=== PATIENT | male | born 1970 | race Caucasian/White ===

== ENCOUNTER 2020-09-06 12:17 | Emergency (ER) | payer BC ==
--- OUTSIDE RECORDS SUMMARY | 2020-09-06 12:21 | XMS REPORT | Continuity of Care Document ---
:1970 Author Organization [facility] t Address [address] [place] [address] Dr. Rivera [address] [place] [id number] Care Team Providers Name Role Phone Unavailable Unavailable Unavailable Payers Payer Name Policy Type Policy Number Effective Date Expiration Date S ource Problems This patient has no known problems. Allergies, Adverse Reactions, Alerts This patient has no known allergies or adverse reactions. Medications This patient has no known medications. Procedures This patient has no known procedures. Results This patient has no known results.
--- NOTE | 2020-09-06 13:26 | RAD REPORT ---
EXAM DESCRIPTION: CT - Ct Stroke Brain Wo Cont - 09/06/2020 1:20 pm CLINICAL HISTORY: Dizziness;Visual disturbances Headache, drowsiness, CVA symptomology COMPARISON: No comparisons TECHNIQUE: All CT scans are performed using dose optimization technique as appropriate and may inclu de automated exposure control or mA/KV adjustment according to patient size. FINDINGS: No intracranial hemorrhage, hydrocephalus or extra-axial fluid collection.No areas of brai n edema or evidence of midline shift. The paranasal sinuses and mastoids are clear. The calvarium is intact. IMPRESSION: No acute intracranial abnormality. The findings were discussed with ALMITA Henson on 09/06/2020 at 1:20 p.m. by telephone.
[2020-09-06 13:47] LABS: Protime INR 1.09
[2020-09-06 14:05] LABS: Absolute Lymphocytes (CBC) 1.7 K/uL (0.7-4.9); Basophils % 1.1 % (0-1.3); Hematocrit 44.5 % (39.6-49.0); Lymphocytes % 18.6 % (15.3-44.8); MPV 7.9 fL (7.6-11.3)
[2020-09-06 14:07] LABS: ALT/SGPT 27 U/L (12-78); AST/SGOT 11 U/L (15-37); Albumin 3.7 g/dL (3.4-5.0); Alkaline Phosphatase 100 U/L (45-117); BUN Blood Urea Nitrogen 12 mg/dL (7-18); Bicarbonate 29 mmol/L (21-32); Bilirubin Direct 0.1 mg/dL (0-0.2); Bilirubin Total 0.5 mg/dL (0.2-1.0); Glucose Level 111 mg/dL (74-106); Magnesium 2.3 mg/dL (1.8-2.4); NT PRO-BNP 317 pg/mL (<125); Potassium 4.1 mmol/L (3.5-5.1); Protein, Total 8.6 g/dL (6.4-8.2); Sodium Level 142 mmol/L (136-145); Troponin (Emerg Dept Use Only) < 0.02 ng/mL (0.0-0.045)
--- NOTE | 2020-09-06 14:26 | RAD REPORT ---
EXAM DESCRIPTION: RAD - Chest Single View - 09/06/2020 1:53 pm CLINICAL HISTORY: DYSPNEA Chest pain. COMPARISON: No comparisons FINDINGS: Portable technique limits examination quality. The lungs are grossly clear. The heart is normal in size. No displaced fractures. IMPRESSION: No acute intrathoracic process suspected.
--- NOTE | 2020-09-06 14:31 | EDPHYS ---
Physician Documentation [facility] Name: Guy Santiago Age: 49 yrs Sex: Male : 1970 Arrival Date: 09/06/2020 Time: 12:21 Bed 13 Private MD: ED Physician Garrett Vaz HPI: 09/06 14:21 This 49 yrs old Male presents to ER via Ambulatory with complaints of jr8 Dizziness, Blurred Vision. 14:21 The patient presents with dizziness, lightheadedness. Onset: The symptoms/episode jr8 began/occurred suddenly, today. Context: occurred at a restaurant. Associated signs and symptoms: Pertinent positives: blurred vision. Patient reports sitting at restaurant with a friend when he suddenly became dizzy and lightheaded with visual changes mostly on left side. He denies LOC, AMS, weakness, numbness or tingling. . Historical: - Allergies: 12:30 PENICILLINS; ll1 12:30 shell fish; ll1 - PMHx: 12:30 heart condition-arrhythmia; ll1 - PSHx: 12:30 pyloric stenosis; ll1 - Immunization history:: Flu vaccine is up to date. - Social history:: Smoking status: Patient denies any tobacco usage or history of. ROS: 14:23 Cardiovascular: Negative for chest pain, palpitations, and edema, Respiratory: Negative jr8 for shortness of breath, cough, wheezing, and pleuritic chest pain, Abdomen/GI: Negative for abdominal pain, nausea, vomiting, diarrhea, and constipation, MS/Extremity: Negative for injury and deformity, Skin: Negative for injury, rash, and discoloration, Neuro: Negative for headache, weakness, numbness, tingling, and seizure, Psych: Negative for depression, anxiety, suicide ideation, homicidal ideation, and hallucinations. 14:23 Eyes: Positive for blurry vision, visual disturbance, of the outer aspect of conjuctiva of left eye, iris of left eye and inner aspect of conjunctiva of left eye. Exam: 14:24 Eyes: Pupils equal round and reactive to light, extra-ocular motions intact. Lids and jr8 lashes normal. Conjunctiva and sclera are non-icteric and not injected. Cornea within normal limits. Periorbital areas with no swelling, redness, or edema. Cardiovascular: Regular rate and rhythm with a normal S1 and S2. No gallops, murmurs, or rubs. Normal PMI, no JVD. No pulse deficits. Respiratory: Lungs have equal breath sounds bilaterally, clear to auscultation and percussion. No rales, rhonchi or wheezes noted. No increased work of breathing, no retractions or nasal flaring. Abdomen/GI: Soft, non-tender, with normal bowel sounds. No distension or tympany. No guarding or rebound. No evidence of tenderness throughout. Skin: Warm, dry with normal turgor. Normal color with no rashes, no lesions, and no evidence of cellulitis. MS/ Extremity: Pulses equal, no cyanosis. Neurovascular intact. Full, normal range of motion. Neuro: Awake and alert, GCS 15, oriented to person, place, time, and situation. Cranial nerves II-XII grossly intact. Motor strength 5/5 in all extremities. Sensory grossly intact. Cerebellar exam normal. Normal gait. 14:24 Neuro: Orientation: is normal, Mentation: is normal, Memory: is normal, Cranial nerves: grossly normal, Cerebellar function: is grossly normal, Romberg testing is negative, able to perform alternating rapid hand movements, Motor: is normal, moves all fours, strength is normal, Sensation: is normal, no obvious gross deficits, Gait: is steady. 14:27 Back: No spinal tenderness. No costovertebral tenderness. Full range of motion. jr8 Vital Signs: 12:28 BP 151 / 88; Pulse 72; Resp 17; Temp 98.1; Pulse Ox 100% ; Weight 149.69 kg; Height 6 ll1 ft. 4 in. (193.04 cm); Pain 0/10; 13:47 BP 157 / 84; Pulse 72; Resp 17; Pulse Ox 100% ; Pain 0/10; jl7 14:00 BP 138 / 82; Pulse 65; Resp 17; Pulse Ox 99% ; jl7 14:50 BP 122 / 80; Pulse 66; Resp 17; Pulse Ox 98% ; jl7 12:28 Body Mass Index 40.17 (149.69 kg, 193.04 cm) ll1 NIH Stroke Scale Scores: 13:10 NIHSS Score: 0 jl7 14:24 NIHSS Score: 0 jr8 MDM: 12:46 Patient medically screened. 8 14:26 Differential diagnosis: near-syncope, TIA. Data reviewed: vital signs, nurses notes, jr8 lab test result(s), CBC, electrolytes, EKG, radiologic studies, CT scan. Data interpreted: ed case manager: rate is 72 beats/min, rhythm is normal sinus rhythm, Pulse oximetry: on room air is 100 %. Interpretation: normal. Special discussion: Based on the history and exam findings, there is no indication for further emergent testing or inpatient evaluation. I discussed with the patient/guardian the need to see the neurologist for further evaluation of the symptoms. ED course: Spoke to Dr. Sosa who agrees with initial assessment and treatment plan. Can be worked up out patient srivastava understanding if he were to worsen or have changes to come back immediately.. 14:27 Data reviewed: vital signs, nurses notes, lab test result(s), EKG, radiologic studies, jr8 CT scan, plain films. Data interpreted: Pulse oximetry: on room air is 100 %. Interpretation: normal. Counseling: I had a detailed discussion with the patient and/or guardian regarding: the historical points, exam findings, and any diagnostic results supporting the discharge/admit diagnosis, lab results, radiology results, the need for outpatient follow up, a neurologist, to return to the emergency department if symptoms worsen or persist or if there are any questions or concerns that arise at home. Response to treatment: the patient's symptoms have resolved after treatment. 09/06 13:13 Order name: Basic Metabolic Panel; Complete Time: 14: 09/06 13:13 Order name: CBC with Diff; Complete Time: 14: 09/06 13:13 Order name: LFT's; Complete Time: 14:09/06 13:13 Order name: Magnesium; Complete Time: 14:09/06 13:13 Order name: NT PRO-BNP; Complete Time: 14: 09/06 13:13 Order name: PT-INR; Complete Time: 09/06 13:13 Order name: Troponin (emerg Dept Use Only); Complete Time: 14:09/06 13:13 Order name: XRAY Chest (1 view); Complete Time: 14:31 09/06 13:15 Order name: CT Stroke Brain w/o Contrast; Complete Time: :09/06 13:50 Order name: Glucose, Ancillary Testing; Complete Time: 13:58 EDMS 09/06 13:13 Order name: EKG; Complete Time: 13:13 8 09/06 13:13 Order name: Cardiac monitoring; Complete Time: 13:52 8 09/06 13:13 Order name: EKG - Nurse/Tech; Complete Time: 13:52 8 09/06 13:13 Order name: IV Saline Lock; Complete Time: 13:52 8 09/06 13:13 Order name: Labs collected and sent; Complete Time: :52 8 09/06 13:13 Order name: O2 Per Protocol; Complete Time: :52 8 09/06 13:13 Order name: O2 Sat Monitoring; Complete Time: :52 [facility] Administered Medications: 14:35 Drug: Aspirin 162 mg Route: PO; jl7 14:49 Follow up: Response: Medication administered at discharge. jl7 14:35 Drug: foLIC Acid 1 mg Route: IVPB; Site: right antecubital; jl7 14:49 Follow up: Response: Medication administered at discharge.; IV Status: Completed jl7 infusion 14:36 Drug: Atorvastatin 40 mg Route: PO; jl7 14:49 Follow up: Response: Medication administered at discharge. jl7 Point of Care Testing: Blood Glucose: 13:38 Blood Glucose: 114 mg/dL; jl7 Ranges: Critical Glucose Levels:Adult <50 mg/dl or >400 mg/dl <40 mg/dl or >180 mg/dl Disposition: 22:17 Co-signature as Attending Physician, Garrett Vaz MD I agree with the assessment and kdr plan of care. Disposition: 09/06/20 14:30 Discharged to Home. Impression: Amaurosis fugax. - Condition is Stable. - Discharge Instructions: Transient Ischemic Attack, Amaurosis Fugax. - Prescriptions for atorvastatin 40 mg Oral tablet - take 1 tablet by ORAL route once daily; 30 tablet. Folic Acid 1 mg Oral Tablet - take 1 tablet by ORAL route once daily; 30 tablet. - Medication Reconciliation Form, Thank You Letter, Antibiotic Education, Prescription Opioid Use form. - Follow up: Vic Sosa MD; When: 2 - 3 days; Reason: Recheck today's complaints, Continuance of care, Re-evaluation by your physician. - Problem is new. - Symptoms are resolved. - Notes: Daily 81 mg aspirin NIH Stroke Scale - NIH Stroke Score Date: 09/06/2020 Time: 13:10 Total Score = 0 1a. Level of Consciousness (LOC) - 0(Alert) 1b. Level of Consciousness (LOC) (Year \T\ Age) - 0(Both) 1c. LOC Commands (Open \T\ Closes Eyes/Awning Maker) - 0(Both) 2. Best Gaze (Lateral Gaze Paresis) - 0(Normal) 3. Visual Field Loss - 0(No visual loss) 4. Facial Palsy - 0(Normal) 5a. Left Arm: Motor (10-second hold) - 0(No drift) 5b. Right Arm: Motor (10-second hold) - 0(No drift) 6a. Left Leg: Motor (5-second hold - always test supine) - 0(No drift) 6b. Right Leg: Motor (5-second hold - always test supine) - 0(No drift) 7. Limb Ataxia (finger/nose \T\ heel/sánchez - test with eyes open) - 0(Absent) 8. Sensory Loss (pinprick arms/legs/face) - 0(Normal) 9. Best Language: Aphasia (description/naming/reading) - 0(No aphasia) 10. Dysarthria (speech clarity - read or repeat words) - 0(Normal) 11. Extinction and Inattention (visual/tactile/auditory/spatial/personal) - 0(No abnormality) Initials: jl7 NIH Stroke Scale - NIH Stroke Score Date: 09/06/2020 Time: 14:24 Total Score = 0 1a. Level of Consciousness (LOC) - 0(Alert) 1b. Level of Consciousness (LOC) (Year \T\ Age) - 0(Both) 1c. LOC Commands (Open \T\ Closes Eyes/Awning Maker) - 0(Both) 2. Best Gaze (Lateral Gaze Paresis) - 0(Normal) 3. Visual Field Loss - 0(No visual loss) 4. Facial Palsy - 0(Normal) 5a. Left Arm: Motor (10-second hold) - 0(No drift) 5b. Right Arm: Motor (10-second hold) - 0(No drift) 6a. Left Leg: Motor (5-second hold - always test supine) - 0(No drift) 6b. Right Leg: Motor (5-second hold - always test supine) - 0(No drift) 7. Limb Ataxia (finger/nose \T\ heel/sánchez - test with eyes open) - 0(Absent) 8. Sensory Loss (pinprick arms/legs/face) - 0(Normal) 9. Best Language: Aphasia (description/naming/reading) - 0(No aphasia) 10. Dysarthria (speech clarity - read or repeat words) - 0(Normal) 11. Extinction and Inattention (visual/tactile/auditory/spatial/personal) - 0(No abnormality) Initials: jr8 Signatures: Dispatcher [employer] EDMS Garrett Vaz MD MD [facility] Rivera Egan PA PA jr8 Mayela Cohen, RN RN hb Cata Caban RN RN jl7 Lena Zamora RN RN ll1 Corrections: (The following items were deleted from the chart) 13:17 13:14 Head Brain Wo Cont+CT.RAD.BRZ ordered. EDIA EDIA 14:29 14:26 ED course: He is to f/u with neurology. Any changes or worsening of jr8 condition he is to return to ED. . jr8 14:53 14:30 09/06/2020 14:30 Discharged to Home. Impression: Amaurosis fugax. hb Condition is Stable. Forms are Medication Reconciliation Form, Thank You Letter, Antibiotic Education, Prescription Opioid Use. Follow up: Vic Sosa; When: 2 - 3 days; Reason: Recheck today's complaints, Continuance of care, Re-evaluation by your physician. Problem is new. Symptoms are resolved. jr8
--- NOTE | 2020-09-06 14:31 | ER ---
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 Near syncope feeling. Dizziness has gotten better. L eye still blurry. Coronavirus screen: Client denies travel out of the [place] in the last 14 days. At this time, the client does not indicate any symptoms associated with coronavirus-19. Ebola Screen: Patient denies travel to an Ebola-affected area in the 21 days before illness onset. Initial Sepsis Screen: Does the patient meet any 2 criteria? No. Patient's initial sepsis screen is negative. Does the patient have a suspected source of infection? No. Patient's initial sepsis screen is negative. Risk Assessment: Do you want to hurt yourself or someone else? Patient reports no desire to harm self or others. Onset of symptoms was September 06, 2020. 12:28 Method Of Arrival: Ambulatory ll1 12:28 Acuity: JACINTA 3 ll1 13:10 An acute neurological deficit is present. The charge nurse has been notified. The jl7 patient has been moved to a treatment area. Pre-hospital glucose is not applicable to this patient. 13:10 Care prior to arrival: None. jl7 13:15 Acuity: JACINTA 2 hb Triage Assessment: 13:15 The onset of the patients symptoms was September 06, 2020 at 11:30. General: Appears in no jl7 apparent distress. uncomfortable. Stroke Activation: Symptom onset < 3 hours Physician: Stroke Attending; Name: ; Notified At: ; Arrived At: Physician: Chief Stroke Resident; Name: ; Notified At: ; Arrived At: Physician: Stroke Resident; Name: ; Notified At: ; Arrived At: Physician: ED Attending; Name: Milind; Notified At: 13:15; Arrived At: 13:15 Physician: ED Resident; Name: ; Notified At: ; Arrived At: Historical: - Allergies: 12:30 PENICILLINS; ll1 12:30 shell fish; ll1 - PMHx: 12:30 heart condition-arrhythmia; ll1 - PSHx: 12:30 pyloric stenosis; ll1 - Immunization history:: Flu vaccine is up to date. - Social history:: Smoking status: Patient denies any tobacco usage or history of. Screenin:10 Abuse screen: Denies threats or abuse. Denies injuries from another. Nutritional jl7 screening: No deficits noted. Tuberculosis screening: No symptoms or risk factors identified. Fall Risk IV access (20 points). Total Akhtar Fall Scale indicates No Risk (0-24 pts). Assessment: 13:10 General: Appears in no apparent distress. uncomfortable, Behavior is calm, cooperative, jl7 appropriate for age. Pain: Denies pain. Neuro: Level of Consciousness is awake, alert, obeys commands, Oriented to person, place, time, situation, Binding Folder Machine are equal bilaterally Moves all extremities. Full function Gait is steady, Speech is normal, Facial symmetry appears normal, Pupils are PERRLA, Intact. Cardiovascular: Denies chest pain, Patient's skin is warm and dry. Chest pain is denied. Respiratory: Airway is patent Respiratory effort is even, unlabored, Respiratory pattern is regular, symmetrical, Denies shortness of breath. Derm: Skin is pink, warm \T\ dry. 13:14 Reassessment: Code Stroke called. Pt to CT via stretcher with Cata WESLEY. hb 13:30 VAN Scoring: Arm Drift: Patients demonstrates NO arm weakness. Patient is VAN Negative. jl7 The patient has not been NPO before screening. The patient is currently on the following diet: Home The patient is alert, and able to follow commands. The patient does not exhibit slurred or garbled speech. The patient is not exhibiting difficulty speaking. The patient does not exhibit difficulty understanding words. The patient is able to swallow own secretions with no drooling or need for suction. Patient tolerated one teaspoon of water. No drooling, immediate coughing, gurgling, or clearing of the throat was noted. The patient tolerated 90mL of water. No drooling, immediate coughing, gurgling, or clearing of the throat was noted. The patient passed the bedside swallow screening. Oral medications may be given as ordered. Contact Physician for further diet orders. Provider notified of bedside swallow screening results: Rivera RECIO. T-PA (Activase) Screening: Contraindications: Rapidly improving condition or minor deficit: Yes. 14:30 Reassessment: Patient appears in no apparent distress at this time. Patient and/or jl7 family updated on plan of care and expected duration. Pain level reassessed. Patient is alert, oriented x 3, equal unlabored respirations, skin warm/dry/pink. Patient states feeling better. Patient states symptoms have improved. Vital Signs: 12:28 BP 151 / 88; Pulse 72; Resp 17; Temp 98.1; Pulse Ox 100% ; Weight 149.69 kg; Height 6 ll1 ft. 4 in. (193.04 cm); Pain 0/10; 13:47 BP 157 / 84; Pulse 72; Resp 17; Pulse Ox 100% ; Pain 0/10; jl7 14:00 BP 138 / 82; Pulse 65; Resp 17; Pulse Ox 99% ; jl7 14:50 BP 122 / 80; Pulse 66; Resp 17; Pulse Ox 98% ; jl7 12:28 Body Mass Index 40.17 (149.69 kg, 193.04 cm) ll1 NIH Stroke Scale Scores: 13:10 NIHSS Score: 0 jl7 14:24 NIHSS Score: 0 8 ED Course: 12:21 Patient arrived in ED. mr 12:29 Triage completed. ll1 12:29 Arm band placed on Patient placed in an exam room, on a stretcher. ll1 12:32 Rivera Egan PA is PHCP. jr8 12:32 Garrett Vaz MD is Attending Physician. jr8 12:59 Cata Caban RN is Primary Nurse. jl7 13:10 Patient has correct armband on for positive identification. Placed in gown. Bed in low jl7 position. Call light in reach. Side rails up X 1. airline counter agent on. Pulse ox on. NIBP on. 13:19 CT Stroke Brain w/o Contrast In Process Unspecified. EDMS 13:35 Initial lab(s) drawn, by me, sent to lab. EKG done, by ED staff, reviewed by Rivera RECIO. Inserted saline lock: 20 gauge in right antecubital area, using aseptic technique. Blood collected. 13:53 XRAY Chest (1 view) In Process Unspecified. EDMS 14:30 Vic Sosa MD is Referral Physician. jr8 14:51 No provider procedures requiring assistance completed. IV discontinued, intact, jl7 bleeding controlled, No redness/swelling at site. Pressure dressing applied. Administered Medications: 14:35 Drug: Aspirin 162 mg Route: PO; jl7 14:49 Follow up: Response: Medication administered at discharge. jl7 14:35 Drug: foLIC Acid 1 mg Route: IVPB; Site: right antecubital; jl7 14:49 Follow up: Response: Medication administered at discharge.; IV Status: Completed jl7 infusion 14:36 Drug: Atorvastatin 40 mg Route: PO; jl7 14:49 Follow up: Response: Medication administered at discharge. jl7 Point of Care Testing: Blood Glucose: 13:38 Blood Glucose: 114 mg/dL; jl7 Ranges: Outcome: 14:30 Discharge ordered by . jr8 14:51 Discharged to home ambulatory. jl7 14:51 Condition: stable 14:51 Discharge instructions given to patient, Instructed on discharge instructions, follow up and referral plans. medication usage, Demonstrated understanding of instructions, follow-up care, medications, Prescriptions given X 2. 14:53 Patient left the ED. hb NIH Stroke Scale - NIH Stroke Score Date: 09/06/2020 Time: 13:10 Total Score = 0 1a. Level of Consciousness (LOC) - 0(Alert) 1b. Level of Consciousness (LOC) (Year \T\ Age) - 0(Both) 1c. LOC Commands (Open \T\ Closes Eyes/Administrative Assistant) - 0(Both) 2. Best Gaze (Lateral Gaze Paresis) - 0(Normal) 3. Visual Field Loss - 0(No visual loss) 4. Facial Palsy - 0(Normal) 5a. Left Arm: Motor (10-second hold) - 0(No drift) 5b. Right Arm: Motor (10-second hold) - 0(No drift) 6a. Left Leg: Motor (5-second hold - always test supine) - 0(No drift) 6b. Right Leg: Motor (5-second hold - always test supine) - 0(No drift) 7. Limb Ataxia (finger/nose \T\ heel/sánchez - test with eyes open) - 0(Absent) 8. Sensory Loss (pinprick arms/legs/face) - 0(Normal) 9. Best Language: Aphasia (description/naming/reading) - 0(No aphasia) 10. Dysarthria (speech clarity - read or repeat words) - 0(Normal) 11. Extinction and Inattention (visual/tactile/auditory/spatial/personal) - 0(No abnormality) Initials: jl7 NIH Stroke Scale - NIH Stroke Score Date: 09/06/2020 Time: 14:24 Total Score = 0 1a. Level of Consciousness (LOC) - 0(Alert) 1b. Level of Consciousness (LOC) (Year \T\ Age) - 0(Both) 1c. LOC Commands (Open \T\ Closes Eyes/Administrative Assistant) - 0(Both) 2. Best Gaze (Lateral Gaze Paresis) - 0(Normal) 3. Visual Field Loss - 0(No visual loss) 4. Facial Palsy - 0(Normal) 5a. Left Arm: Motor (10-second hold) - 0(No drift) 5b. Right Arm: Motor (10-second hold) - 0(No drift) 6a. Left Leg: Motor (5-second hold - always test supine) - 0(No drift) 6b. Right Leg: Motor (5-second hold - always test supine) - 0(No drift) 7. Limb Ataxia (finger/nose \T\ heel/sánchez - test with eyes open) - 0(Absent) 8. Sensory Loss (pinprick arms/legs/face) - 0(Normal) 9. Best Language: Aphasia (description/naming/reading) - 0(No aphasia) 10. Dysarthria (speech clarity - read or repeat words) - 0(Normal) 11. Extinction and Inattention (visual/tactile/auditory/spatial/personal) - 0(No abnormality) Initials: jr8 Signatures: Dispatcher [employer] ATAMelany KeyRivera PA PA jr8 Mayela Cohen, RN Cata Gonzáles RN RN jl7 Lena Zamora RN RN ll1
[2020-09-06] MEDS ORDERED: ATORVASTATIN 20 MG TAB ONE (14:54)
[2020-09-06] MEDS ORDERED: ASPIRIN EC 81 MG TAB PO ONE (14:54)
[2020-09-06] MEDS ORDERED: FOLIC ACID 5 MG/ML VIAL ONE (14:55)
[2020-09-06 15:21] VITALS: TEMP 98.1
[2020-09-06 15:24] VITALS: BP 122/80; O2SAT 98
== END 2020-09-06 14:53 | disposition home or self-care (01) ==
LOC: ER 12:17
DX: G45.3 Amaurosis fugax (principal)
CPT/HCPCS: 36415; 70450; 71045; 80048; 80076; 82947; 83735; 83880; 84484; 85025; 85610; 93005; 96374; 99285

== ENCOUNTER 2024-07-25 17:15 | Emergency (ER) | payer BC ==
[2024-07-25 18:07] LABS: PT Prothrombin Time 11.6 SECONDS (9.4-12.5); Protime INR 1.11
[2024-07-25 18:20] LABS: Absolute Basophils 0.2 K/uL (0-0.5); Absolute Eosinophils 0.5 K/uL (0-0.5); Absolute Lymphocytes (CBC) 1.3 K/uL (0.7-4.9); Absolute Monocytes 0.6 K/uL (0.1-1.3); Absolute Neutrophil 5.2 K/uL (1.8-8.0); Basophils % 2.8 % (0-1.3); Eosinophils % 5.9 % (0-4.4); Hematocrit 47.1 % (39.6-49.0); Hemoglobin 15.6 g/dL (13.6-17.9); MCH 27.2 pg (27.0-35.0); MCHC 33.1 g/dL (32.0-36.0); MCV 82.2 fL (80-100); MPV 8.3 fL (7.6-11.3); Monocytes % 7.8 % (3.3-12.3); Neutrophils % 66.5 % (41.7-73.7); Platelets 338 thou/uL (152-406); RBC Red Blood Cell Count 5.73 M/uL (4.33-5.43); Red Cell Distribution Width 13.9 % (12.1-15.2)
[2024-07-25 18:24] LABS: Albumin 3.8 g/dL (3.4-5.0); Anion Gap 9.8 mEq/L (5.0-15.0); Bilirubin Direct 0.2 mg/dL (0-0.2); Bilirubin Indirect, Calculated 0.3 mg/dL (0.2-0.8); Bilirubin Total 0.5 mg/dL (0.2-1.0); Potassium 3.8 mEq/L (3.5-5.1); Protein, Total 7.8 g/dL (6.4-8.2); Thyroid Stimulating Hormone 0.176 uIU/mL (0.358-3.740); Troponin High Sensitivity 31.7 pg/mL (<58.9)
--- NOTE | 2024-07-25 18:33 | RAD REPORT ---
EXAM: Chest Single View HISTORY: CHEST PAIN COMPARISON: 09/06/2020 FINDINGS: LUNGS/PLEURA: The lungs are clear. No pleural effusions or pneumothorax. No pulmonary edema. MEDIASTINUM: The mediastinal silhouette is within normal limits. CARDIAC: The cardiac silhouette is within normal limits. UPPER ABDOMEN: No significant abnormality. BONES: No acute abnormality. LINES/TUBES/OTHER: N/A IMPRESSION: No evidence of acute cardiopulmonary disease.
--- NOTE | 2024-07-25 18:41 | EDPHYS ---
Physician Documentation [facility] Name: Guy Santiago Age: 53 yrs Sex: Male : 1970 Arrival Date: 07/25/2024 Time: 17:15 Bed 13 Private MD: ED Physician Db Swanson HPI: 07/25 17:28 This 53 yrs old Male presents to ER via Unassigned with complaints of Rapid heart rate, sb4 Abnormal Lab Results - EKG. 17:28 Patient presents today with complaints of rapid heart rate. States that he has had sb4 episodes like this intermittently for about 30 years now. Has been seeing cardiology consistently, is on propranolol twice daily. States that he was at the [employer] today when an episode occurred. States that usually these episodes resolve after a minute or so but it lasted much longer today so he came to the ED. States that upon arrival, his heart rate has returned to normal. He has no complaints at this time. Historical: - Allergies: 17:29 PENICILLINS; cm10 17:29 IODINATED CONTRAST MEDIA; cm10 - Home Meds: 17:29 propranolol 160 mg oral Capsule, ER 24 hr 1 cap [Active]; cm10 - PMHx: 17:29 heart condition-arrhythmia; Kidney Cancer; cm10 - PSHx: 17:29 Nephrectomy; cm10 - Immunization history:: Adult Immunizations up to date. - Infectious Disease History:: Denies. - Social history:: Smoking status: Patient denies any tobacco usage or history of. ROS: 17:28 Constitutional: Negative for fever, chills, and weight loss, sb4 17:28 Cardiovascular: Positive for palpitations, 17:28 All other systems are negative, Exam: 17:28 Constitutional: This is a well developed, well nourished patient who is awake, alert, sb4 and in no acute distress. Head/Face: Normocephalic, atraumatic. Eyes: Extra-ocular motions intact. Periorbital areas with no swelling, redness, or edema. ENT: Mucous membranes moist. Cardiovascular: Regular rate and rhythm with a normal S1 and S2. Respiratory: No increased work of breathing, no retractions or nasal flaring. Abdomen/GI: Soft, non-tender, no distension. Skin: Warm, dry with normal turgor. Normal color with no rashes, no lesions, and no evidence of cellulitis. MS/ Extremity: Pulses equal, no cyanosis. Neurovascular intact. Full, normal range of motion. Vital Signs: 17:27 BP 135 / 92; Pulse 87; Resp 15; Temp 97.5(O); Pulse Ox 100% on R/A; Weight 149.69 kg; cm10 Height 6 ft. 4 in. ; Pain 0/10; 18:00 BP 127 / 83; Pulse 92; Resp 14; Pulse Ox 100% ; me1 19:00 BP 135 / 92; Pulse 84; Resp 14; Temp 98.4; Pulse Ox 100% ; me1 17:27 Body Mass Index 40.17 (149.69 kg, 193.04 cm) cm10 17:27 Pain Scale: Adult cm10 MDM: 17:19 Medical Screening Exam initiated sb4 17:33 External Records Reviewed: EKG from cardiology office shows afib with a rate of 141. sb4 18:42 Data reviewed: vital signs, nurses notes, lab test result(s), EKG, radiologic studies, sb4 and as a result, I will discharge patient. Consideration of Admission/Observation Escalation of care including admission/observation considered. Management of patient was discussed with the following: Hospitalist: Dr. Branham, recommended starting patient on p.o. Cardizem and admitting for observation. Refusal of service: The patient/guardian displays adequate decision making capability and despite a detailed discussion of alternatives, benefits, risks, and consequences refuses: Admission to the hospital for further work-up and treatment. ED course: Given the weather, patient would prefer to go home and follow-up outpatient on . He does not want to start the new medication due to the risk of his blood pressure dropping. I did discuss risk versus benefits. I think this is a reasonable choice given he has had only a few of these episodes over the span of 30 years. He is completely asymptomatic. His blood work is unremarkable. He knows to return for any new or worsening symptoms. 07/25 17:26 Order name: Basic Metabolic Panel; Complete Time: 18:25 sb4 07/25 17:26 Order name: CBC with Diff; Complete Time: 18:27 sb4 07/25 17:26 Order name: LFT's; Complete Time: 18:25 sb4 07/25 17:26 Order name: Magnesium; Complete Time: 18:25 sb4 07/25 17:26 Order name: NT PRO-BNP; Complete Time: 18:25 sb4 07/25 17:26 Order name: PT-INR; Complete Time: 18:12 sb4 07/25 17:26 Order name: Troponin HS; Complete Time: 18:25 sb4 07/25 17:26 Order name: TSH; Complete Time: 18:25 sb4 07/25 17:26 Order name: XRAY Chest (1 view); Complete Time: 18:34 sb4 07/25 17:26 Order name: Cardiac monitoring; Complete Time: 17:27 sb4 07/25 17:26 Order name: EKG - Nurse/Tech; Complete Time: 17:44 sb4 07/25 17:26 Order name: IV Saline Lock; Complete Time: 17:53 sb4 07/25 17:26 Order name: Labs collected and sent; Complete Time: 17:53 sb4 07/25 17:26 Order name: O2 Per Protocol; Complete Time: 17:27 sb4 07/25 17:26 Order name: O2 Sat Monitoring; Complete Time: 17:27 sb4 EC:44 Rate is 84 beats/min. Rhythm is regular, Normal Sinus Rhythm. TN interval is normal at sb4 180 msec. QRS interval is normal at 98 msec. QT interval is normal at 388 msec. No Q waves. T waves are Normal. No ST changes noted. Clinical impression: Normal ECG. Interpreted by me. Reviewed by me. Administered Medications: No medications were administered Disposition Summary: 07/25/24 18:41 Discharge Ordered Notes: Location: Home sb4 Problem: new sb4 Symptoms: have improved sb4 Condition: Stable sb4 Diagnosis - Paroxysmal atrial fibrillation sb4 Followup: sb4 - With: Lb Branham MD - When: 2 - 3 days - Reason: Recheck today's complaints, Re-evaluation by your physician Discharge Instructions: - Discharge Summary Sheet sb4 - Atrial Fibrillation sb4 Forms: - Patient Portal Instructions sb4 - Leadership Thank You Letter sb4 Addendum: 07/28/2024 21:27 Co-signature as Attending Physician, Db Swanson MD I reviewed the patient's care r n provided by the Advanced Practice Provider and agree with the diagnosis and treatment plan. Signatures: Dispatcher [employer] EDMS SwansonDb henriquez MD MD rn Brown, Sophia, PA-C PARaizaC sb4 Rosi Soliz RN RN cm10 Corrections: (The following items were deleted from the chart) 07/25 17: 17:27 BASIC METABOLIC PANEL+C.LAB.BRZ ordered. EDMS EDMS 17: 17:27 CBC+H.LAB.BRZ ordered. EDMS EDMS 17: 17:27 HEPATIC FUNCTION+C.LAB.BRZ ordered. EDMS EDMS 17: 17:27 MAGNESIUM+C.LAB.BRZ ordered. EDMS EDMS 17: 17:27 PROBNP+C.LAB.BRZ ordered. EDMS EDMS 17: 17:27 PROTIME (+INR)+COAG.LAB.BRZ ordered. EDMS EDMS 17: 17:27 Troponin High Sensitivity+C.LAB.BRZ ordered. EDMS EDMS 17: 17:27 Chest Single View+RAD.RAD.BRZ ordered. EDMS EDMS 17: 17:27 THYROID STIMULAT HORMONE+C.LAB.BRZ ordered. EDMS EDMS 18:33 17:33 External Records Reviewed: EKG from cardiology office shows SVT with a rate of sb4 141. sb4 18:33 17:28 Patient presents today with complaints of rapid heart rate. States that he has sb4 had episodes like this intermittently for about 30 years now. Has been seeing cardiology consistently, is on propranolol twice daily. States that he was [place] the [employer] today when an episode occurred. States that usually these episodes resolve after a minute or so but it lasted much longer today so he came to the ED. States that upon arrival, his heart rate has returned to normal. He has no complaints at this time. sb4
--- NOTE | 2024-07-25 18:41 | ER ---
Nurse's Notes [facility] Name: Guy Santiago Age: 53 yrs Sex: Male : 1970 Arrival Date: 07/25/2024 Time: 17:15 Bed 13 Private MD: Diagnosis: Paroxysmal atrial fibrillation Presentation: 07/25 17:27 Chief complaint: Patient states: Elevated heart rate onset this morning after walking cm10 down the stairs. Pt states that he went to see Dr. Branham and was told to come to the ER due to heart rate being in the 140s and EKG showing SVT. Pt's heart rate back to normal upon arrival to the ER. Coronavirus screen: Client denies travel out of the [place] in the last 14 days. Ebola Screen: Patient denies travel to an Ebola-affected area in the 21 days before illness onset. Initial Sepsis Screen: Does the patient meet any 2 criteria? No. Patient's initial sepsis screen is negative. Does the patient have a suspected source of infection? No. Patient's initial sepsis screen is negative. Risk Assessment: Do you want to hurt yourself or someone else? Patient reports no desire to harm self or others. Onset of symptoms was July 25, 2024. 17:27 Method Of Arrival: Ambulatory cm10 17:27 Acuity: JACINTA 3 cm10 Triage Assessment: 17:31 General: Appears in no apparent distress. comfortable, Behavior is calm, cooperative. cm10 Neuro: No deficits noted. Level of Consciousness is awake, alert, obeys commands, Oriented to person, place, time, situation, Appropriate for age. Respiratory: No deficits noted. Airway is patent Respiratory effort is even, unlabored, Respiratory pattern is regular, symmetrical. Historical: - Allergies: 17:29 PENICILLINS; cm10 17:29 IODINATED CONTRAST MEDIA; cm10 - Home Meds: 17:29 propranolol 160 mg oral Capsule, ER 24 hr 1 cap [Active]; cm10 - PMHx: 17:29 heart condition-arrhythmia; Kidney Cancer; cm10 - PSHx: 17:29 Nephrectomy; cm10 - Immunization history:: Adult Immunizations up to date. - Infectious Disease History:: Denies. - Social history:: Smoking status: Patient denies any tobacco usage or history of. Screenin:57 [facility] ED Fall Risk Assessment (Adult) History of falling in the last 3 months, me1 including since admission No falls in past 3 months (0 pts) Confusion or Disorientation No (0 pts) Intoxicated or Sedated No (0 pts) Impaired Gait No (0 pts) Mobility Assist Device Used No (0 pt) Altered Elimination No (0 pt) Score/Fall Risk Level 0 - 2 = Low Risk Maintained a safe environment, Provided non-skid footwear, Hourly rounding (assess needs \T\ fall precautionary measures) done. Abuse screen: Denies threats or abuse. Nutritional screening: No deficits noted. Tuberculosis screening: No symptoms or risk factors identified. Assessment: 17:57 General: Appears comfortable, well groomed, well developed, well nourished, Behavior is me1 calm, cooperative, appropriate for age, Reports Elevated heart rate onset this morning after walking down the stairs. Pt states that he went to see Dr. Branham and was told to come to the ER due to heart rate being in the 140s and EKG showing SVT. Pt's heart rate back to normal upon arrival to the ER. Pain: Denies pain. Neuro: Level of Consciousness is awake, alert, obeys commands, Oriented to person, place, time, situation, Appropriate for age. Cardiovascular: Reports palpitations, Patient's skin is warm and dry. Rhythm is sinus rhythm. Respiratory: Airway is patent Respiratory effort is even, unlabored, Respiratory pattern is regular, symmetrical. GI: No signs and/or symptoms were reported involving the gastrointestinal system. : No signs and/or symptoms were reported regarding the genitourinary system. EENT: No signs and/or symptoms were reported regarding the EENT system. Derm: Skin is intact, is healthy with good turgor, Skin is pink, warm \T\ dry. Musculoskeletal: No signs and/or symptoms reported regarding the musculoskeletal system. Vital Signs: 17:27 BP 135 / 92; Pulse 87; Resp 15; Temp 97.5(O); Pulse Ox 100% on R/A; Weight 149.69 kg; cm10 Height 6 ft. 4 in. ; Pain 0/10; 18:00 BP 127 / 83; Pulse 92; Resp 14; Pulse Ox 100% ; me1 19:00 BP 135 / 92; Pulse 84; Resp 14; Temp 98.4; Pulse Ox 100% ; me1 17:27 Body Mass Index 40.17 (149.69 kg, 193.04 cm) cm10 17:27 Pain Scale: Adult cm10 ED Course: 17:18 Patient arrived in ED. im 17:18 Sarah Leon PA-C is PHCP. sb4 17:18 Db Swanson MD is Attending Physician. sb4 17:21 Shaneka Richter, RN is Primary Nurse. me1 17:29 Triage completed. cm10 17:30 Arm band placed on right wrist. Patient placed in an exam room, on a stretcher, on cm10 cardiac cath rn, on pulse oximetry. 17:44 EKG done, by ED staff, reviewed by Sarah Leon PA-C. me1 17:52 Initial lab(s) drawn, by me, sent to lab. Inserted saline lock: 20 gauge in right kb4 antecubital area, using aseptic technique. Blood collected. Flushed with 10 mL NS. 17:53 Basic Metabolic Panel Sent. kb4 17:53 CBC with Diff Sent. kb4 17:53 LFT's Sent. kb4 17:53 Magnesium Sent. kb4 17:53 NT PRO-BNP Sent. kb4 17:53 PT-INR Sent. kb4 17:53 Troponin HS Sent. kb4 17:57 Patient has correct armband on for positive identification. Bed in low position. Call me1 light in reach. Side rails up X 1. Provided Education on: POC. Verbalized understanding.. Client placed on continuous cardiac and pulse oximetry monitoring. NIBP monitoring applied. monitoring and evaluation advisor on. Pulse ox on. NIBP on. 17:57 No provider procedures requiring assistance completed. me1 18:19 XRAY Chest (1 view) In Process Unspecified. EDMS 18:41 Lb Branham MD is Referral Physician. sb4 19:00 IV discontinued, intact, bleeding controlled, No redness/swelling at site. Pressure me1 dressing applied. Administered Medications: No medications were administered Medication: 17:57 VIS not applicable for this client. me1 Outcome: 18:41 Discharge ordered by . sb4 19:00 Discharged to home ambulatory, me1 19:00 Condition: stable 19:00 Discharge instructions given to patient, family, Instructed on discharge instructions, follow up and referral plans. Demonstrated understanding of instructions, follow-up care, 19:00 Patient left the ED. me1 Signatures: Dispatcher [employer] EDSarah Becker PA-C PA-C sb4 Kathryn Ramachandran Clarissa, RN RN cm10 Shaneka Richter RN RN me1 Fernanda Mondragon kb4 Corrections: (The following items were deleted from the chart) 17:31 17:27 Chief complaint: Patient states: Elevated heart rate onset this morning after cm10 walking down the stairs. Pt states that he went to see Dr. Branham and was told to come to the ER. Pt's heart rate back to normal upon arrival to the ER. cm10 17:57 17:27 Chief complaint: Patient states: Elevated heart rate onset this morning after me1 walking down the stairs. Pt states that he went to see Dr. Branham and was told to come to the ER due to heart rate being in the 140s and EKG showing SVT. Pt's heart rate back to normal upon arrival to the ER. cm10
[2024-07-25 20:13] VITALS: O2SAT 100
[2024-07-25 20:24] VITALS: BP 135/92; TEMP 98.4
--- NOTE | 2024-07-28 13:01 | EKG ---
Test Date: 2024-07-25 Test Time: 17:35:34 Cartoonist Special Effects: MEASUREMENT RESULTS: Intervals: Rate: 84 AL: 180 QRSD: 98 QT: 388 QTc: 458 [place]: P: 50 AL: 180 QRS: 19 T: 36 INTERPRETIVE STATEMENTS: Normal sinus rhythm Normal ECG Compared to ECG 09/06/2020 13:38:07 No significant changes Electronically Signed On 07-28-24 12:59:00 TUBE SORTER by Zander Samuel
== END 2024-07-25 19:00 | disposition home or self-care (01) ==
LOC: ER 17:15
DX: I48.0 Paroxysmal atrial fibrillation (principal)
CPT/HCPCS: 36415; 71045; 80048; 80076; 83735; 83880; 84443; 84484; 85025; 85610; 93005; 99284